=== PATIENT | male | born 1965 | race Hispanic/Latino ===

== ENCOUNTER 2016-09-01 16:29 | Emergency (ER) | payer SELFPAY ==
[2016-09-01 16:51] VITALS: RESP 16; TEMP 98.4; O2SAT 99
--- NOTE | 2016-09-01 17:13 | ED PDOC ---
Arrival/HPI - General Historian: Patient - History of Present Illness Time/Duration: > week Symptom Onset: Gradual Symptom Course: Unchanged Quality: Aching Severity Level: 4 Activities at Onset: Light Context: Walking <Elvira Montalvo - Last Filed: 09/01/16 18:31> <Elke Mckenzie Y - Last Filed: 09/12/16 15:52> - General Chief Complaint: Lower Extremity Problem/Injury Time Seen by Provider: 09/01/16 16:56 - History of Present Illness Narrative History of Present Illness (Text): 09/01/16 17:13 This is a 50Y M with no PMH here for L knee pain x 2 weeks. 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 He noticed that over time he was having L knee pain while walking. It is better with rest and is relieved with Advil. It is worse when he is working. He has had this pain 15yrs ago in the same knee, but does not remember the diagnosis. He denies any trauma, popping sound, numbness/tingling, drainage, fevers or chills. (Elvira Montalvo) Past Medical History - Provider Review Nursing Documentation Reviewed: Yes - Past Medical History Past Medical History: No Previous - Cardiac Hx Cardiac Disorders: No - Pulmonary Hx Respiratory Disorders: No - Neurological Hx Neurological Disorder: No - HEENT Hx HEENT Disorder: No - Renal Hx Renal Disorder: No - Endocrine/Metabolic Hx Endocrine Disorders: No - Hematological/Oncological Hx Blood Disorders: No - Integumentary Hx Psoriasis: Yes - Musculoskeletal/Rheumatological Other/Comment: KNEE PAIN L - Gastrointestinal Hx Gastrointestinal Disorders: No - Genitourinary/Gynecological Hx Genitourinary Disorders: No - Psychiatric Hx Psychophysiologic Disorder: No Hx Substance Use: Yes (CANNABIS) - Surgical History Other/Comment: SKIN CA REMOVAL R CHEEK <Elvira Montalvo - Last Filed: 09/01/16 18:31> Family/Social History - Physician Review Nursing Documentation Reviewed: Yes Family/Social History: Neoplasm/Cancer (dad- bladder cancer) Smoking Status: Never Smoked Hx Alcohol Use: Yes Frequency of alcohol use: Socially Hx Substance Use: Yes (CANNABIS) <Elvira Montalvo - Last Filed: 09/01/16 18:31> Allergies/Home Meds <Elvira Montalvo - Last Filed: 09/01/16 18:31> <Elke Mckenzie Y - Last Filed: 09/12/16 15:52> Allergies/Adverse Reactions: Allergies No Known Allergies Allergy (Verified 09/01/16 16:45) Review of Systems - Physician Review All systems were reviewed & negative as marked: Yes - Review of Systems Constitutional: Normal. absent: Fevers Respiratory: Normal. absent: SOB Cardiovascular: Normal. absent: Chest Pain, Palpitations Gastrointestinal: Normal. absent: Abdominal Pain, Diarrhea, Nausea, Vomiting Genitourinary Male: Normal. absent: Dysuria, Frequency, Hematuria Musculoskeletal: Arthralgias (knee pain ), Joint Swelling. absent: Back Pain, Myalgias Skin: Normal. absent: Rash, Pruritis, Skin Lesions Neurological: Normal. absent: Headache, Dizziness Hemo/Lymphatic: Normal. absent: Easy Bleeding, Easy Bruising <Elvira Montalvo - Last Filed: 09/01/16 18:31> Physical Exam Vital Signs Reviewed: Yes Temperature: Afebrile Blood Pressure: Hypertensive Pulse: Regular Respiratory Rate: Normal Appearance: Positive for: Well-Appearing, Non-Toxic, Comfortable Pain Distress: None Mental Status: Positive for: Alert and Oriented X 3 - Systems Exam Head: Present: Atraumatic, Normocephalic Mouth: Present: Moist Mucous Membranes Neck: Present: Normal Range of Motion Respiratory/Chest: Present: Clear to Auscultation, Good Air Exchange. No: Respiratory Distress, Accessory Muscle Use Cardiovascular: Present: Regular Rate and Rhythm, Normal S1, S2. No: Murmurs Abdomen: Present: Normal Bowel Sounds. No: Tenderness, Distention, Peritoneal Signs Back: Present: Normal Inspection Upper Extremity: Present: Normal Inspection. No: Cyanosis, Edema Lower Extremity: Present: Normal Inspection, Normal ROM, Tenderness (L knee superior to patella), Swelling (L knee), Erythema (L knee), Other (no joint line tenderness ). No: Edema, CALF TENDERNESS Neurological: Present: GCS=15, CN II-XII Intact, Speech Normal Skin: Present: Warm, Dry, Normal Color. No: Rashes Psychiatric: Present: Alert, Oriented x 3, Normal Insight, Normal Concentration <Elvira Montalvo - Last Filed: 09/01/16 18:31> <Elke Mckenzie Y - Last Filed: 09/12/16 15:52> Vital Signs Temp Pulse Resp BP Pulse Ox 09/01/16 18:26 158/87 H 09/01/16 17:51 98.4 F 70 16 158/87 H 99 09/01/16 16:48 98.4 F 71 16 170/100 H 99 Medical Decision Making Re-evaluation Time: 17:54 Reassessment Condition: Unchanged - RAD Interpretation Business Reporter: ED Physician - EKG Interpretation Interpreted by ED Physician: Yes Type: 12 lead EKG Comparison: No previous EKG avail. <Elvira Montalvo - Last Filed: 09/01/16 18:31> <Elke Mckenzie Y - Last Filed: 09/12/16 15:52> ED Course and Treatment: 09/01/16 17:39 09/01/16 16:52 Impression: This is a 50Y M with no PMH here for L knee pain x 2 weeks. Differential Diagnosis: -- Bursitis -- arthritis Plan: -- L knee XR -- Reassess and disposition Prior Visits: Notes and results from previous visits were reviewed. Progress Note: Knee XR negative for fracture. Knee noted to be warm with some swelling. Patient does have full range of motion and denies fever or chills. Patient found to be hypertensive with SBP at 170. Repeat SBP was 156. Patient given 5mg Lisinopril. EKG ordered. Recommend patient to follow up with [facility] for continuity of care within 2 weeks. Discharge Instructions: Re-evaluation. Patient feels better. Discussed results and plan with patient who expresses understanding. All questions answered and there is agreement with the plan to discharge home with instructions. Patient stable for discharge. Return if symptoms persist or worsen. (Elvira Montalvo) - RAD Interpretation Narrative RAD Interpretations (Text): 09/01/16 17:54 Knee XR showed no evidence of fracture. (Elvira Montalvo) Radiology Orders: 09/01/16 17:04 KNEE WITH PATELLA LEFT 3 VIEW [RAD] Stat - EKG Interpretation EKG Interpretation (Text): 09/01/16 18:25 HR 66. Intverals within normal limits. NSR. LVH. (Elvira Montalvo) - Medication Orders Current Medication Orders: Discontinued Medications Lisinopril (Zestril) 5 mg PO STAT STA Stop: 09/01/16 17:55 Last Admin: 09/01/16 18:26 Dose: 5 mg <Elvira Montalvo - Last Filed: 09/01/16 18:31> - PA / PACKAGING DESIGNER / Resident Statement / has reviewed & agrees with the documentation as recorded. MD/ has examined the patient and agrees with the treatment plan. <Elke Mckenzie - Last Filed: 09/12/16 15:52> - Scribe Statement pt seen by myself and no concern for septic joint xray negative pt instructed on o uptt follo wup also noted elevated blood pressure and informed pt of need for follo wup ( Elke Mckenzie) Disposition/Present on Arrival - Present on Arrival Any Indicators Present on Arrival: No History of DVT/PE: No History of Uncontrolled Diabetes: No Urinary Catheter: No History of Decub. Ulcer: No History Surgical Site Infection Following: None - Disposition Have Diagnosis and Disposition been Completed?: Yes Disposition Time: 18:08 Patient Plan: Discharge <Elvira Montalvo - Last Filed: 09/01/16 18:31> <Elke Mckenzie - Last Filed: 09/12/16 15:52> - Disposition Diagnosis: Knee pain, Elevated blood pressure reading Disposition: HOME/ ROUTINE Condition: GOOD Discharge Instructions (ExitCare): Swollen Knee Joint (ED), Hypertension (GEN) Print Language: BELARUSIAN Additional Instructions: Mr. Kunz, thank you for letting us take care of you today. Your provider was Dr. Montalvo. You were treated for L knee bursitis and hypertension. The emergency medical care you received today was directed at your acute symptoms. If you were prescribed any medication, please fill it and take as directed. It may take several days for your symptoms to resolve. Return to the Emergency Department if your symptoms worsen, do not improve, or if you have any other problems. Please contact your doctor or call one of the physicians/clinics you have been referred to that are listed on the Patient Visit Information form that is included in your discharge packet. Bring any paperwork you were given at discharge with you along with any medications you are taking to your follow up visit. Our treatment cannot replace ongoing medical care by a primary care provider (PCP) outside of the emergency department. Thank you for allowing the [facility] team to be part of your care today. If you had an X-Ray or CT scan: A Radiologist will review the ED reading if any change in treatment is needed we will contact you. -- Please follow up with [facility] to find PMD as well as an orthopedist. -- Please monitor blood pressure. -- Recommended to follow up with PMD for blood pressure check, screening labs and colonoscopy. Prescriptions: Cephalexin [Keflex] 500 mg PO BID #14 capsule Referrals: [facility] [Outside] - Follow up with primary [facility] [Outside] - Follow up with primary PCP,NO [Primary Care Provider] - Follow up with primary Spike Early MD [Staff Provider] - Follow up with primary
[2016-09-01 18:27] VITALS: BP 158/87
[2016-09-01 18:56] VITALS: PULSE 70
--- NOTE | 2016-09-02 10:42 | RAD ---
PROCEDURE: Left Knee Radiographs. HISTORY: Pain. COMPARISON: None. FINDINGS: BONES: Normal. No fracture. JOINTS: Normal. No osteoarthritis. JOINT EFFUSION: None. OTHER FINDINGS: None. IMPRESSION: Normal radiographs of the left knee.
--- NOTE | 2016-09-02 15:22 | CARD ---
APPROVED REPORT EKG Measurement Heart [id number] GA 170P10 [id number] <Conclusion> Normal sinus rhythm Left ventricular hypertrophy with QRS widening Nonspecific T wave abnormality Abnormal ECG
== END 2016-09-01 18:56 | disposition home or self-care (01) ==
LOC: ED 16:29
DX: M25.562 Pain in left knee (principal); R03.0 Elevated blood-pressure reading, without diagnosis of hypertension